=== PATIENT | female | born 1985 | race Caucasian/White ===

== ENCOUNTER 2020-04-10 06:32 | Outpatient (CLI) | payer OTHER, SELFPAY ==
[2020-04-10 07:02] VITALS: BMI 22.7
[2020-04-10 07:20] LABS: Add Urine Microscopic? YES; Bilirubin Urine Neg (Negative); Blood Urine 3+ (Negative); Glucose Urine UA Norm (Normal); Ketones Urine Negative (Negative); Leukocyte Esterase Urine Trace (Negative); Nitrate Urine Positive (Negative); Protein Urine Neg (Negative); Urine Appearance Clear (CLEAR); Urine Color Straw (Yellow); Urobilinogen Urine Norm (Negative)
[2020-04-10 07:21] LABS: Add Urine Culture? Yes; Bacteria Urine 1+ /hpf; RBC Urine 0-4 /hpf (0-2); Squamous Epithelial Cell Urine 0-4 /hpf (0-5); WBC Urine 0-4 /hpf (0-5)
[2020-04-10 07:52] VITALS: BP 120/72; PULSE 81
[2020-04-10] MEDS: cefTRIAXone 1,000 MG in sodium chloride 0.9% (plus) 50 ML 100 MG IV (08:30)
[2020-04-10] MEDS: sodium chloride 0.9% 1,000 ML 999 ML IV (08:30)
[2020-04-10 10:00] VITALS: BP 120/72; PULSE 81; RESP 16; TEMP 37.1
== END 2020-04-10 10:50 | disposition home or self-care (01) ==
LOC: OPOB 06:33 → OBGYN 08:31
PROVIDERS: PCP Family Medicine; Visit Provider Family Medicine
DX: O26.899 Other specified pregnancy related conditions, unspecified trimester (principal); R10.9 Unspecified abdominal pain
CPT/HCPCS: 81001; 87086; 99211; J0696; J7030

== ENCOUNTER 2020-05-07 18:40 | Inpatient (IN) | payer OTHER, SELFPAY ==
[2020-05-07 19:39] VITALS: RESP 16; TEMP 36.7
[2020-05-07 19:48] LABS: Basophils % 0.2 %; Eosinophils % 0.3 %; Hematocrit 36.7 % (37.0-47.0); Hemoglobin 12.5 g/dL (11.5-15.3); Lymphocytes # 1.9 10^3/uL (0.8-4.8); Lymphocytes % 12.6 %; Mean Corpuscular HGB Conc 34.1 g/dL (30.0-36.0); Mean Corpuscular Hemoglobin 34.8 pg (28.0-34.0); Mean Corpuscular Volume 102.2 fL (81-99); Mean Platelet Volume 13.5 fL (7.4-10.4); Monocytes % 6.5 %; Neutrophils # 12.04 10^3/uL (1.8-7.7); Nucleated Red Blood Cells % 0 %; Platelet Count 195 10^3/cmm (130-400); Red Blood Count 3.59 10^6/uL (4.1-5.3)
[2020-05-07] MEDS: miSOPROStol 100 mcg tablet 25 MCG VAGINAL (19:59)
[2020-05-07 21:00] VITALS: RESP 16; TEMP 36.9
[2020-05-07 21:34] VITALS: BP 124/70; PULSE 82
[2020-05-07 22:54] VITALS: BMI 23.3
[2020-05-07] MEDS: lactated ringers 1,000 ML 999 ML IV (23:36)
[2020-05-08] VITALS (88 sets, daily range): BP systolic 0–165; BP diastolic 0–79; PULSE 66–114; RESP 16–20; TEMP 36.6–36.9; O2SAT 97–100
--- NOTE | 2020-05-08 00:52 | ANES.PREANE2 ---
Pre-Anesthetic Assessment Pre-Anesthetic Assessment: Height/Weight: Height 1.68 m Weight 65.771 kg Pulse BP Pulse Ox 94 117/60 100 05/08/20 00:48 05/08/20 00:48 05/08/20 00:49 Preop Diagnosis: IUP Proposed Procedure: Lumbar Labor Epidural Was Beta Laura taken within 24 hours: N/A Social: Social History: No alcohol and No tobacco Exam: Pre-Anes Outpt Exam: alert, oriented x 3, clear to auscultation bilaterally and regular rate & rhythm Airway: Submandibular: WNL Cervical ROM: WNL MP: 2 Dentition: Full History/ROS: No significant history except as noted and No significant complaints Pulmonary: Pulmonary: None reported CV/HEM: CV/HEM: None reported : : None reported Hepatic: Hepatic: None reported GI: GI: None reported Metabolic: Metabolic: None reported Musc/skel: Musc/skel: None reported Neuropsych: Neuropsych: None reported Anesthetic Plan: ASA status: 2 Anesthesia: Regional (specify below) (epidural) Meds/Allergies Current Medications: Current Medications Generic Name Dose Route Start Last Admin Trade Name Freq PRN Reason Stop Dose Admin Lactated Ringer's 1,000 mls @ 999 m ls/hr 05/07/20 23:41 05/07/20 23:36 Lactated Ringers IV 999 mls/hr .Q1H1M PRN Administration See label comment s PFSH Anesthesia Female Reproductive History: : 3 Data Anesthesia CBC & Chem 7: 05/07/20 19:25 Other Labs: Laboratory Results - last 48 hr 05/07/20 05/07/20 19:25 19:25 WBC 15.0 H RBC 3.59 L Hgb 12.5 Hct 36.7 L MCV 102.2 H MCH 34.8 H MCHC 34.1 RDW 12.0 L Plt Count 195 MPV 13.5 H Neut % (Auto) 80.0 Lymph % (Auto) 12.6 [place] % (Auto) 6.5 Eos % (Auto) 0.3 Baso % (Auto) 0.2 Neut # (Auto) 12.04 H Lymph # (Auto) 1.9 [place] # (Auto) 1.0 H Eos # (Auto) 0.0 Baso # (Auto) 0.0 Nucleated RBC % (auto) 0 Nucleated RBCs # 0.0 Blood Type A Positive Rho(D) Type Positive Antibody Screen Negative Cardiac Studies: No Data to Display Anesthesia Procedures Epidural: Time Out Performed: Yes Consents Signed: Procedure Consent Consent: from patient, risks and benefits reviewed and patient agrees to proceed Lumbar Level: L3-L4 Epidural position: sitting Epidural procedure: sterile prep of area, 1% lidocaine to numb the area (5), 18 g needle, negative for paresthesia passed, neg for paresthesia, test dose given, 1.5% xylocaine 1:200k epi (5), 0.2% Ropivacaine bolus ml (2% PF lidocaine 8cc given), placed PCEA (5cc q10min x 3), no systemic response, sterile dressing applied, L.U.D. no apparent complications and 0.2% Ropiavacaine @ mls/hr (11) Additional Comments: Called to OB for epidural placement, pt evaluated and assessed for placement and explained procedure. Labs reviewed. Pt agrees to proceed. placed to 5cm in space and tolerated well. Bolused with lidocaine and 100mcg Fentanyl and VSS throughout per nursing chart. Last BP 121/71. Pain much improved.
[2020-05-08] MEDS: ondansetron 2 mg/ML SDV 2 mL 4 MG IVP (01:03)
[2020-05-08] MEDS: dextrose 5%-lactated ringers 1,000 ML 125 ML IV ×2 (01:04→07:15)
--- NOTE | 2020-05-08 06:46 | P.PCNOB_ITS ---
Delivery Note: Date of delivery: May 08, 2020 Pre-Delivery Course: The patient presented to the hospital at 39 weeks for an elective induction. She is given Cytotec 25 mcg x 1. An epidural was placed. Spontaneous rupture of membranes occurred. She pushed for about 2 hours. Delivery: DELIVERY: The patient progressed to complete without difficulty. She delivered a female with a weight of 7 pounds 7 ounces with Apgars of 9, 9. The baby was delivered from the LOP position. The baby's mouth and nose were suctioned at the site of the perineum. The baby was then completely delivered and placed on the mother's abdomen. The cord was then clamped and cut. There was a nuchal cord x1 which was easily reduced prior to delivery of the head. Meconium was noted after delivery of the baby. The placenta and 3 vessel cord were delivered intact shortly thereafter. The placenta was easily delivered, and carefully examined. The placenta was noted to be completely intact. The perineum and vaginal vault were carefully examined. No lacerations were noted. Both the mother and the baby were in stable condition. A&P Assessment and plan (1) 39 weeks gestation of : At this point, anticipate routine care. Will be very mindful of her risk of bleeding, and will have a very quick trigger to respond to any indication of hemorrhage. As long as she does well, anticipate she will go home tomorrow. Status: Acute (2) History of hemorrhage: Status: Acute (3) Spontaneous vaginal delivery: Status: Acute Coding Level of Care Code Acute [employer] Teacher for Chg Fwd Diagnoses 39 weeks gestation of Z3A.39 History of hemorrhage Z87.59 Spontaneous vaginal delivery O80
[2020-05-08] MEDS: prenatal vitamin Capsule 1 CAP PO (08:51)
[2020-05-08] MEDS: ibuprofen 800 mg tablet PO ×3 (08:51→21:41)
[2020-05-08] MEDS: docusate sodium 100 mg Capsule PO ×2 (08:51→18:03)
[2020-05-08] MEDS: benzocaine-menthol 78 gm Canister 1 SPRAY TOPICAL (08:53)
[2020-05-08 14:42] LABS: Hematocrit 30.7 % (37.0-47.0); Hemoglobin 10.6 g/dL (11.5-15.3); Mean Corpuscular HGB Conc 34.5 g/dL (30.0-36.0); Mean Corpuscular Hemoglobin 35.5 pg (28.0-34.0); Mean Corpuscular Volume 102.7 fL (81-99); Mean Platelet Volume 13.3 fL (7.4-10.4); Platelet Count 163 10^3/cmm (130-400); Red Blood Count 2.99 10^6/uL (4.1-5.3); Red Cell Distribution Width 12.1 % (12.1-15.1); White Blood Count 24.8 10^3/uL (4.0-10.0)
[2020-05-09 04:15] VITALS: BP 117/74; PULSE 74; RESP 16; TEMP 36.9
[2020-05-09 05:34] LABS: Hematocrit 28.6 % (37.0-47.0); Hemoglobin 9.7 g/dL (11.5-15.3); Mean Corpuscular HGB Conc 33.9 g/dL (30.0-36.0); Mean Corpuscular Volume 103.2 fL (81-99); Platelet Count 163 10^3/cmm (130-400); Red Blood Count 2.77 10^6/uL (4.1-5.3); Red Cell Distribution Width 12.2 % (12.1-15.1); White Blood Count 14.8 10^3/uL (4.0-10.0)
--- NOTE | 2020-05-09 08:10 | P.DS_ITS ---
Discharge Providers [employer] EMISSIONS TECHNICIAN Date of Admission: 05/07/20 18:40 Date of Discharge: 05/09/20 Attending Provider at Admission: Trent Leigh MD Attending Provider at Discharge: Trent Leigh MD Primary Care Provider: Trent Leigh MD Diagnoses at Discharge Discharge Diagnosis (1) 39 weeks gestation of : Status: Acute (2) History of hemorrhage: Status: Acute (3) Spontaneous vaginal delivery: Status: Acute Reason for Visit Reason for Visit: INDUCTION Hospital Course Hospital Course The patient is a 34-year-old 3 female at 39 weeks estimated gestational age presenting for induction. Cytotec 25 mcg x 1 was placed. Spontaneous rupture membranes occurred. She had an epidural. She then progressed to complete without difficulty. She had unremarkable delivery of the baby. Her placenta was removed without difficulty. Her course was also unremarkable. Her bleeding was within normal limits. She breast-fed well. Her pain was well controlled. There were no concerns. Information Peripartum Data: Infant Delivery Method: Vaginal Physical Exam Narrative: EXAM NARRATIVE: The patient is alert. She appears comfortable. Her heart has a regular rate and rhythm with no murmurs appreciated. Lungs are clear to auscultation bilaterally. Her fundus is firm and below the umbilicus. Urinary Catheter Management^: Contreras: Cath Placed During This Visit: yes Reason for Continuing Indwelling Catheter: Accurate Measurement of Urinary Output in Critically Ill Patients Urinary Catheter Date of Insertion: 05/08/20 Urinary Catheter Time of Insertion: 01:00 Discharge Data Data Completed and Pending: Pending at discharge Category Date Time Status Hemagram Timed Lab 05/08/20 14:36 Ordered Hemagram Timed Lab 05/09/20 05:00 Ordered Type and Screen S tat Lab 05/07/20 19:25 Received Labs from last 24 hours 05/09/20 05/08/20 05:15 14:30 WBC 14.8 H 24.8 H RBC 2.77 L 2.99 L Hgb 9.7 L 10.6 L Hct 28.6 L 30.7 L MCV 103.2 H 102.7 H MCH 35.0 H 35.5 H MCHC 33.9 34.5 RDW 12.2 12.1 Plt Count 163 163 MPV 13.0 H 13.3 H Vitals: Last Vital Signs Temp 98.4 F 05/09/20 04:15 Pulse 74 05/09/20 04:15 Resp 16 05/09/20 04:15 BP 117/74 05/09/20 04:15 Pulse Ox 100 05/08/20 01:39 Discharge Plan Discharge Patient Disposition: Home Condition: Stable Prescriptions: New ibuprofen 800 mg Tablet 800 mg PO TID Qty: 30 RF: 0 Continued #2 RF: 0 Iron (ferrous sulfate) 325 mg (65 mg iron) Tablet 325 mg PO DAILY RF: 0 Discharge Orders: Discharge Order (Routine); Ordered 05/09/20 Ordered By: Trent Leigh Referrals: Trent Leigh MD [Primary Care Provider] - 4-7 days Discharge Diet: Regular Discharge Activity: Limit activity as instructed Discharge Attestations [employer] EMISSIONS TECHNICIAN Time Spent in Discharge Care*: less than 30 min Coding Level of Care Code Acute [employer] Assistant for Chg Fwd Diagnoses 39 weeks gestation of Z3A.39 History of hemorrhage Z87.59 Spontaneous vaginal delivery O80
[2020-05-09] MEDS: prenatal vitamin Capsule 1 CAP PO (08:49)
[2020-05-09] MEDS: ibuprofen 800 mg tablet PO (08:50)
[2020-05-09] MEDS: docusate sodium 100 mg Capsule PO (08:50)
[2020-05-09 09:15] VITALS: BP 102/68; PULSE 85; RESP 17; TEMP 36.5; O2SAT 98
[2020-05-09 10:35] VITALS: BP 102/68; PULSE 85; RESP 17; TEMP 36.5; O2SAT 98
== END 2020-05-09 10:30 | disposition home or self-care (01) | DRG 807 ==
PROVIDERS: Admitting Provider Family Medicine; PCP Family Medicine; Visit Provider Family Medicine
DX: O69.2XX0 Labor and delivery complicated by other cord entanglement, with compression, not applicable or unspecified (principal); Z37.0 Single live birth; O99.02 Anemia complicating childbirth; D64.9 Anemia, unspecified; Z3A.39 39 weeks gestation of pregnancy
CPT/HCPCS: 12345; 36415; 51702; 59025; 59409; 85025; 85027; 86850; 86900; 86920; 96374; 96375; J2405; J2795; J3010

== ENCOUNTER → 2021-04-20 12:41 | Outpatient (BNVA) | payer OTHER, SELFPAY | PROVIDERS: PCP Family Medicine; Visit Provider Family Medicine | DX: Z20.822 Contact with and (suspected) exposure to COVID-19 (principal); Z20.828 Contact with and (suspected) exposure to other viral communicable diseases | CPT/HCPCS: 87635 ==